=== PATIENT | female | born 1955 | race Two or more races ===

== ENCOUNTER 2022-03-24 22:19 | Inpatient (IN) | payer MEDICARE, OTHER ==
[~2022-03-24] VITALS: Ht 157.5 cm; Wt 83.0 kg
--- NOTE | 2022-03-24 22:20 | NUR ---
TO ER BED 1. BIBDAUGHTER C/O GENERALIZED WEAKNESS SINCE 10AM. DAUGHTER STATES "SHE IS NOT MAKING SENSE WHEN I TALK TO HER". NO FACIAL DROOP OR EXTREMITY WEAKNESS NOTED. DENIES ANY CHEST PAIN OR SOB. CONNECTED TO MONITOR. AWAITING MD SALAS
[2022-03-24] MEDS ORDERED: MECLIZINE HCL 12.5 MG TABLET PO ONE (22:30)
--- NOTE | 2022-03-24 22:40 | NUR ---
IV LINE ESTABLISHED, RHAND 20G. BLOOD COLLECTED AND SENT TO LAB
--- NOTE | 2022-03-24 22:47 | NUR ---
COVID ANTIGEN SWAB COLLECTED AND SENT TO LAB
[2022-03-24] MEDS ORDERED: MECLIZINE HCL 25 MG TABLET ONE (22:50)
[2022-03-24 22:53] LABS: HEMATOCRIT 37 % (33-45); HEMOGLOBIN 12.5 g/dL (11.5-14.8); LYMPHOCYTES % (AUTO) 53.7 % (20.0-44.0); MEAN CORPUSCULAR HGB CONC 34 g/dl (31.0-36.0); MEAN CORPUSCULAR VOLUME 83 fL (82-100); MONOCYTES % (AUTO) 6.8 % (2.0-12.0); NEUTROPHILS % (AUTO) 37.5 % (43.0-81.0); PLATELET COUNT (AUTO) 179 K/uL (150-450); RED BLOOD CELL COUNT(AUTO) 4.45 MIL/uL (4.0-5.2); WHITE BLOOD COUNT (AUTO) 6.5 K/uL (4.3-11.0)
[2022-03-24 22:54] LABS: BASOPHILS # (AUTO) 0.1 K/uL (0.0-0.2); LYMPHOCYTES # (AUTO) 3.5 K/uL (0.8-4.8); MONOCYTES # (AUTO) 0.4 K/uL (0.1-1.30); NEUTROPHILS # (AUTO) 2.4 K/uL (1.8-8.9)
[2022-03-24 23:12] LABS: CALCIUM, SERUM 8.9 mg/dL (8.5-10.1); CARBON DIOXIDE 27 mmol/L (21-32); CHLORIDE 102 mmol/L (98-107); CREATININE 0.6 mg/dL (0.6-1.3); GLUCOSE 210 mg/dL (74-106); POTASSIUM 5.4 mmol/L (3.5-5.1); SODIUM SERUM 136 mmol/L (136-145); UREA NITROGEN, BLOOD 17 mg/dL (7-18)
[2022-03-24 23:16] LABS: ALANINE AMINOTRANSFERASE 87 U/L (12-78); ALBUMIN 3.6 g/dL (3.4-5.0); ALKALINE PHOSPHATASE 59 U/L (46-116); BILIRUBIN,TOTAL 0.4 mg/dL (0.2-1.0); TOTAL PROTEIN, SERUM 7.2 g/dL (6.4-8.2)
--- NOTE | 2022-03-24 23:39 | NUR ---
URINE SAMPLE COLLECTED AND SENT TO LAB
[2022-03-25 00:20] LABS: ASPARTATE AMINOTRANSFERASE 94 U/L (15-37)
[2022-03-25 00:36] LABS: BILIRUBIN,URINE NEGATIVE (NEGATIVE); COLOR,URINE YELLOW (YELLOW); LEUKOCYTE ESTERASE ,URINE MODERATE (NEGATIVE); NITRITE, URINE NEGATIVE (NEGATIVE); PROTEIN,URINE NEGATIVE (NEGATIVE); UGLUCOSE NEGATIVE (NEGATIVE); UROBILINOGEN,URINE 0.2 EU/dL (0.2)
--- NOTE | 2022-03-25 03:13 | NUR ---
F/U WITH [facility] FOR CXR RESULTS.
[2022-03-25] MEDS ORDERED: SODIUM POLYSTYRENE SULFONATE 15 G/60 ML BOTTLE PO ONE (04:00)
[2022-03-25] MEDS ORDERED: SODIUM POLYSTYRENE SULFONATE 15 G/60 ML BOTTLE ONE (04:03)
[2022-03-25] MEDS ORDERED: ASPIRIN EC 325 MG TABLET.DR PO ONE (04:09)
--- NOTE | 2022-03-25 05:50 | NUR ---
TEXT DR. MARTINEZ FOR MRI APPROVAL.
[2022-03-25 06:34] LABS: BACTERIA,URINE 1+ /HPF (None Seen); RBC,URINE 0-2 /HPF (0-2)
--- NOTE | 2022-03-25 07:14 | NUR ---
LAB AT BEDSIDE
--- NOTE | 2022-03-25 07:15 | NUR ---
RECEVED PT FROM [facility] PT ASPEEPY DOUGHTGHTER AT BE SIDE
[2022-03-25] MEDS: ASPIRIN EC 325 MG TABLET.DR PO SCH (07:30)
[2022-03-25 07:38] LABS: ALBUMIN 3.8 g/dL (3.4-5.0); BILIRUBIN,DIRECT 0.1 mg/dL (0.0-0.2); BILIRUBIN,TOTAL 0.2 mg/dL (0.2-1.0); TOTAL PROTEIN, SERUM 7.1 g/dL (6.4-8.2)
[2022-03-25 07:46] LABS: THYROID STIMULATING HORMONE 2.187 uIU/mL (0.358-3.74)
--- NOTE | 2022-03-25 08:13 | NUR ---
BED 311-1
--- NOTE | 2022-03-25 08:25 | NUR ---
ACCU CHECH DONE 191 MG/LD
--- NOTE | 2022-03-25 08:36 | NUR ---
HAND OFF TO CRISTI VARGHESE TO ROOM 311-1 STABLE VS AND CONDITION
--- NOTE | 2022-03-25 09:00 | NUR ---
BACK CLOSER NOTE PATIENT RECEIVED FROM ER AROUND 0845AM. PATIENT TRANSPORTED VIA GURNEY ACCOMPANIED BY 2 NURSES. PATIENT ACCOMPANIED BY DAUGHTER EAN. PATIENT IS ALERT AND ORIENTED X 3-4 APPEARS GENERALLY WEAK. ABLE TO TRANSFER FROM THE GURNEY TO THE BED WITH MINIMAL ASSISTANCE. COMFORT MEASURES PROVIDED. WITH IV ACCESS ON THE LEFT HAND G20, PATENT AND INTACT. PER DAUGHTER, NOTED SOME SLURRING, BUT MUCH BETTER THAN 3 DAYS AGO WHEN PATIENT HAD SOME 1 SIDED WEAKNESS NOTED AND UNUSUAL TONGUE MOVEMENT WHEN EATING/ TALKING. COMFORT MEASURES PROVIDED. SAFETY MEASURES ENSURED WITH BED ON LOWEST LOCKED POSITION, SIDE RAILS RAISED AND CALL LIGHT WITHIN REACH AT ALL TIMES.
--- NOTE | 2022-03-25 09:30 | NUR ---
FINANCIAL ASSISTANCE ADVISOR NOTE TELE MONITOR PLACED AND PATIENT READING SINUS RHYTHYM ON 70'S
[2022-03-25 12:00] VITALS: BP 138/73
[2022-03-25] MEDS ORDERED: DEXTROSE 50%-WATER 50 ML DISP.SYRIN IV PRN (13:30)
[2022-03-25] MEDS ORDERED: IV NS 0.9% 1,000 ML IV PRN (14:00)
[2022-03-25] MEDS ORDERED: GLIM4TAB37 PO (14:11)
[2022-03-25] MEDS ORDERED: METF-440 PO (14:11)
[2022-03-25] MEDS ORDERED: PROP20TA19 PO (14:11)
[2022-03-25] MEDS ORDERED: INSU100I26 SQ (14:11)
[2022-03-25] MEDS ORDERED: ASPI-1420 PO (14:11)
[2022-03-25] MEDS ORDERED: PRAV40TA3 PO (14:11)
[2022-03-25] MEDS: IV NS 0.9% 1,000 ML IV PRN (14:33)
[2022-03-25] MEDS: CEFTRIAXONE 1 G in IV D5W 50 ML IV SCH (15:29)
[2022-03-25 16:00] VITALS: BP 135/79
[2022-03-25] MEDS ORDERED: BENA20TA9 PO (16:20)
[2022-03-25] MEDS ORDERED: OMEP20CA15 PO (16:20)
[2022-03-25] MEDS ORDERED: AMLO2.5T4 PO (16:20)
[2022-03-25] MEDS ORDERED: GADOTERATE MEGLUMINE 10 MMOL/20 ML VIAL IV ONE (16:37)
[2022-03-25] MEDS: INSULIN REGULAR, HUMAN 100 UNIT/ML 3 ML VIAL SQ PRN (17:29)
[2022-03-25] MEDS: BLOOD SUGAR DIAGNOSTIC 1 EACH STRIP IN SCH ×2 (17:47→21:45)
--- NOTE | 2022-03-25 18:44 | NUR ---
MANAGEMENT NURSE RN CLOSING NOTE PATIENT IS ALERT AND ORIENTED X 3, WITH SOME COGNITIVE PROBLEM PER DAUGHTER AT BEDSIDE. PATIENT APPEARS GENERALLY WEAK. ABLE TO AMBULATE TO BATHROOM WITH ASSISTANCE, VERY INSISTENT, EVEN IF PATIENT WAS TOLD NOT TO AMBULATE. WITH IV ACCESS ON THE LEFT HAND G20, WITH IVF NS RUNNING AT 75ML/HR, INFUSING WELL. PER DAUGHTER, NOTED LESS SLURRING, BUT MUCH BETTER NOW AND UNUSUAL TONGUE MOVEMENT WHEN EATING/ TALKING. COMFORT MEASURES PROVIDED. SAFETY MEASURES ENSURED WITH BED ON LOWEST LOCKED POSITION, SIDE RAILS RAISED AND CALL LIGHT WITHIN REACH AT ALL TIMES. ENDORSED TO NEXT SHIFT FOR CONTINUITY OF CARE.
--- NOTE | 2022-03-25 19:20 | NUR ---
RN NOTE PT SLEEPING SOUNDLY AT THIS TIME. RESPIRATIONS EVEN/UNLABORED. CONT ON IVF OF NS @75ML/HR. TELE MONITOR READING SR, HR 74. DAUGHTER, EAN, AT BEDSIDE. QUESTIONS ADDRESSED. AWAITING FOR MRI RESULT. NO RESULT YET AT THIS TIME. PT IN NO ACUTE DISTRESS. SAFETY MEASURES IN PLACE. WILL CONT TO MONITOR.
[2022-03-25 20:00] VITALS: BP 141/64
--- NOTE | 2022-03-25 20:50 | NUR ---
RN NOTE CHARGE NURSE RECEIVED CALL FROM RADIOLOGY/SORT SUPERVISOR RE MRI RESULT OF ACUTE TO SUBACUTE INFARCT INVOLVING THE LEFT BASAL GANGLIA. RESULT TRANSCRIPT TO FOLLOW. RELAYED TO ON-CALL ,
[2022-03-25] MEDS: ATORVASTATIN 10 MG TABLET PO SCH (21:45)
--- NOTE | 2022-03-25 21:49 | NUR ---
RN NOTE MRI RESULT SENT TO
[2022-03-26] VITALS: BP 139/74
[2022-03-26 04:00] VITALS: BP 148/68
--- NOTE | 2022-03-26 06:00 | NUR ---
RN NOTE PT'S DAUGHTER REFUSED TO HAVE BLOOD DRAWN AT THIS TIME, TOLD PHLEB TO COME BACK LATER BECAUSE PT IS SLEEPING.
[2022-03-26] MEDS: IV NS 0.9% 1,000 ML IV PRN ×2 (06:08→23:53)
[2022-03-26] MEDS: BLOOD SUGAR DIAGNOSTIC 1 EACH STRIP IN SCH ×4 (06:31→21:29)
--- NOTE | 2022-03-26 07:30 | NUR ---
SQL APPLICATION DEVELOPER OPENING NOTES PATIENT IS ASLEEP BUT EASILY ROUSED. ALERT/ORIENTED X 3, DAUGHTER AT BEDSIDE TO TRANSLATE NEEDED. . ABLE TO AMBULATE TO BATHROOM WITH IV ACCESS ON THE LEFT HAND G20, WITH IVF NS RUNNING AT 75ML/HR, INFUSING WELL. COMFORT MEASURES PROVIDED. SAFETY MEASURES ENSURED WITH BED ON LOWEST LOCKED POSITION, SIDE RAILS RAISED AND CALL LIGHT WITHIN REACH AT ALL TIMES, WILL CONT TO MONITOR Addendum: 03/26/22 at 0759 by KEVIN SOFIA RN NO S/S OF DISTRESS/SOB, ON ROOM AIR TOLERATING WELL. LOIN PULLER READING SINUS RHYTHM @ HR-85 Addendum: 03/26/22 at 1901 by KEVIN SOFIA RN R HAND IV ACCESS G20
[2022-03-26 08:00] VITALS: BP 130/70
[2022-03-26] MEDS: ASPIRIN EC 325 MG TABLET.DR PO SCH (08:46)
[2022-03-26 09:00] LABS: BASOPHILS % (AUTO) 0.6 % (0.0-2.0); EOSINOPHILS % (AUTO) 1.1 % (0.0-6.0); HEMATOCRIT 37 % (33-45); HEMOGLOBIN 12.6 g/dL (11.5-14.8); LYMPHOCYTES # (AUTO) 2.2 K/uL (0.8-4.8); LYMPHOCYTES % (AUTO) 48.3 % (20.0-44.0); MEAN CORPUSCULAR HGB CONC 34 g/dl (31.0-36.0); MEAN CORPUSCULAR VOLUME 84 fL (82-100); MONOCYTES # (AUTO) 0.3 K/uL (0.1-1.30); MONOCYTES % (AUTO) 6.7 % (2.0-12.0); NEUTROPHILS % (AUTO) 43.3 % (43.0-81.0); PLATELET COUNT (AUTO) 144 K/uL (150-450); RED BLOOD CELL COUNT(AUTO) 4.44 MIL/uL (4.0-5.2); WHITE BLOOD COUNT (AUTO) 4.6 K/uL (4.3-11.0)
[2022-03-26 09:52] LABS: CALCIUM, SERUM 8.5 mg/dL (8.5-10.1); CREATININE 0.8 mg/dL (0.6-1.3); POTASSIUM 3.9 mmol/L (3.5-5.1)
[2022-03-26 15:37] LABS: CHOLESTEROL 221 mg/dL (<200); HDL CHOLESTEROL 45 mg/dL (40-60); LDL 146 mg/dL (0-99); TRIGLYCERIDES 153 mg/dL (30-150)
[2022-03-26 16:00] VITALS: BP 166/79
[2022-03-26] MEDS: CEFTRIAXONE 1 G in IV D5W 50 ML IV SCH (16:12)
--- NOTE | 2022-03-26 18:55 | NUR ---
TEL RN CLOSING NOTES PATIENT IS ASLEEP BUT EASILY ROUSED. ALERT/ORIENTED X 3, DAUGHTER AT BEDSIDE TO TRANSLATE NEEDED NO S/S OF DISTRESS/SOB, ON ROOM AIR TOLERATING WELL. LACROSSE COACH READING SINUS RHYTHM, HR 87. ABLE TO AMBULATE TO BATHROOM WITH ASSISTANCE. IV ACCESS ON THE R HAND G20, WITH IVF NS RUNNING AT 75ML/HR, AND R- AC G20 INFUSING WELL. COMFORT MEASURES PROVIDED. SAFETY MEASURES ENSURED WITH BED ON LOWEST LOCKED POSITION, SIDE RAILS RAISED AND CALL LIGHT WITHIN REACH AT ALL TIMES, WILL CONT TO MONITOR Addendum: 03/26/22 at 1901 by KEVIN SOFIA RN WILL ENDORSE TO NEXT SHIFT
--- NOTE | 2022-03-26 19:30 | NUR ---
WARPER FIXER OPENING NOTES RECEIVED PT AWAKE IN BED. DAUGHTER AT BEDSIDE. A/O X 3 AND ABLE TO MAKE NEEDS KNOWN. PT STABLE ON ROOM AIR. NO SOB OR S/S OF RESPIRATORY DISTRESS. EXTERNAL INSURANCE SALES SUPERVISOR READING SINUS RHYTHM, HR 87. IV ACCESS ON THE R HAND G20, WITH IVF NS RUNNING AT 75ML/HR, AND RAC G20 INTACT AND PATENT. SAFETY PRECAUTIONS IN PLACE. BED IN LOWEST LOCKED POSITION, HOB ELEVATED, SIDE RAILS RAISED, AND CALL LIGHT AND TABLE WITHIN REACH. ALL NEEDS MET AT THIS TIME.
[2022-03-26 20:00] VITALS: BP 140/87
[2022-03-26] MEDS ORDERED: IOHEXOL-350 100 ML VIAL IV ONE (20:25)
[2022-03-26] MEDS ORDERED: CT SWABBABLE VALVE TRANS SET 1 EA INFUS.SET MC ONE (20:26)
[2022-03-26] MEDS ORDERED: IV NS 0.9% 250 ML IV ONE (20:26)
--- NOTE | 2022-03-26 20:28 | NUR ---
RN NOTE PT TAKEN FOR CT VIA WHEELCHAIR WITH DAUGHTER.
[2022-03-26] MEDS: ATORVASTATIN 10 MG TABLET PO SCH (21:12)
[2022-03-26] MEDS: PROPRANOLOL HCL 10 MG TABLET PO SCH (21:13)
[2022-03-26] MEDS: INSULIN REGULAR, HUMAN 100 UNIT/ML 3 ML VIAL SQ PRN (21:30)
[2022-03-27] VITALS: BP 123/74
[2022-03-27 04:00] VITALS: BP 143/65
[2022-03-27] MEDS: BLOOD SUGAR DIAGNOSTIC 1 EACH STRIP IN SCH ×2 (06:30→11:48)
[2022-03-27 06:34] LABS: BASOPHILS % (AUTO) 0.3 % (0.0-2.0); EOSINOPHILS % (AUTO) 1.3 % (0.0-6.0); HEMATOCRIT 37 % (33-45); HEMOGLOBIN 12.8 g/dL (11.5-14.8); LYMPHOCYTES % (AUTO) 52.8 % (20.0-44.0); MEAN CORPUSCULAR HGB CONC 34 g/dl (31.0-36.0); MEAN CORPUSCULAR VOLUME 83 fL (82-100); MONOCYTES # (AUTO) 0.4 K/uL (0.1-1.30); MONOCYTES % (AUTO) 7.4 % (2.0-12.0); NEUTROPHILS # (AUTO) 2.1 K/uL (1.8-8.9); NEUTROPHILS % (AUTO) 38.2 % (43.0-81.0); PLATELET COUNT (AUTO) 159 K/uL (150-450); WHITE BLOOD COUNT (AUTO) 5.6 K/uL (4.3-11.0)
[2022-03-27] MEDS: INSULIN REGULAR, HUMAN 100 UNIT/ML 3 ML VIAL SQ PRN ×2 (06:41→11:42)
--- NOTE | 2022-03-27 06:44 | NUR ---
ZYGLO TECHNICIAN CLOSING NOTES PT IN BED, EYES CLOSED, EASILY AROUSABLE. DAUGHTER AT BEDSIDE. A/O X 3 AND ABLE TO MAKE NEEDS KNOWN. PT STABLE ON ROOM AIR. NO SOB OR S/S OF RESPIRATORY DISTRESS. EXTERNAL IMAGING ADMINISTRATOR READING SINUS RHYTHM, HR 67. IV ACCESS ON THE R HAND G20, WITH IVF NS RUNNING AT 75ML/HR. ALL DUE MEDS GIVEN ORDERED. SAFETY PRECAUTIONS IN PLACE AT ALL TIMES. BED IN LOWEST LOCKED POSITION, HOB ELEVATED, SIDE RAILS RAISED, AND CALL LIGHT AND TABLE WITHIN REACH. ALL NEEDS MET AT THIS TIME AND WILL ENDORSE TO ONCOMING NURSE FOR MELISSA.
[2022-03-27 06:49] LABS: CALCIUM, SERUM 8.6 mg/dL (8.5-10.1); CREATININE 0.7 mg/dL (0.6-1.3); PHOSPHORUS 4.5 mg/dL (2.5-4.9); POTASSIUM 3.7 mmol/L (3.5-5.1)
[2022-03-27] MEDS ORDERED: PANTOPRAZOLE 40 MG TABLET.DR PO SCH (07:30)
--- NOTE | 2022-03-27 07:50 | NUR ---
LEAD PYTHON DEVELOPER OPENING NOTES RECEIVED PT AWAKE IN BED. DAUGHTER AT BEDSIDE. A/O X 3 AND ABLE TO MAKE NEEDS KNOWN. PT STABLE ON ROOM AIR. NO SOB OR S/S OF RESPIRATORY DISTRESS. EXTERNAL LEAD INVESTIGATOR READING SINUS RHYTHM, HR 71. NO COMPLAINS OF PAIN AT THIS TIME. IV ACCESS ON THE R HAND G20, WITH IVF NS RUNNING AT 75ML/HR, AND RAC G20 INTACT AND PATENT. SAFETY PRECAUTIONS IN PLACE. BED IN LOWEST LOCKED POSITION, HOB ELEVATED, SIDE RAILS RAISED, AND CALL LIGHT AND TABLE WITHIN REACH. WILL CONTINUE TO MONITOR PATIENT.
[2022-03-27] MEDS: PROPRANOLOL HCL 10 MG TABLET PO SCH (08:13)
[2022-03-27 08:45] VITALS: BP 137/71
[2022-03-27] MEDS ORDERED: AMLODIPINE BESYLATE 2.5 MG TABLET PO SCH (09:00)
[2022-03-27] MEDS ORDERED: LISINOPRIL (20MG) 20 MG TABLET PO SCH (09:00)
[2022-03-27] MEDS ORDERED: ASPIRIN EC 81 MG TABLET.DR PO SCH ×2 (09:00)
[2022-03-27] MEDS ORDERED: PRAV40TA3 PO (10:46)
[2022-03-27] MEDS ORDERED: ASPI-1420 PO (10:46)
[2022-03-27] MEDS ORDERED: CEPH500C2 PO (10:46)
[2022-03-27 12:06] VITALS: BP 149/71
--- NOTE | 2022-03-27 13:15 | NUR ---
SENIOR GEOTECHNICAL ENGINEERANIMAL SKINNER NOTES PATIENT DISCHARGED HOME IN MEDICALLY STABLE CONDITION. PATIENT A/O X4 ABLE TO MAKE NEEDS KNOWN. ALL DISCHARGE PAPERWORK READY AND PHYSICIAN DISCHARGE INSTRUCTIONS PROVIDED TO PATIENT; PATIENT AND DAUGHTER WHO IS AT THE BEDSIDE VERBALIZED UNDERSTANDING. BELONGINGS ACCOUNTED FOR AND FORM SIGNED WELL. IV ACCESS REMOVED. PATIENT DECIDED TO LEAVE THE UNIT AMBULATORY ACCOMPANIED BY DAUGHTER AND RN. PATIENT LEFT THE HOSPITAL IN A PRIVATE CAR.
== END 2022-03-27 13:15 | disposition home health service (06) | DRG 64 ==
LOC: ER 22:33 → TRANSITION 03-25 05:47 → TELE 03-25 08:41
PROVIDERS: ADMIT Nurse Practitioner Acute Care; ATTEND Nurse Practitioner Acute Care
DX: I63.9 Cerebral infarction, unspecified (principal); G93.41 Metabolic encephalopathy; N39.0 Urinary tract infection, site not specified; E87.5 Hyperkalemia; I10 Essential (primary) hypertension; Z20.822 Contact with and (suspected) exposure to COVID-19; E78.5 Hyperlipidemia, unspecified; B96.89 Other specified bacterial agents as the cause of diseases classified elsewhere; E11.65 Type 2 diabetes mellitus with hyperglycemia
CPT/HCPCS: 36415; 70450-TC; 70496-TC; 70498-TC; 70553-TC; 71045-TC; 80048-TC; 80061-TC; 80076-TC; 81001; 82962-TC; 83735-TC; 84100-TC; 84443-TC; 84484-TC; 85025-TC; 85652-TC; 85730-TC; 87081-TC; 87086-TC; 92507-TC; 92521; 93307-TC; 94799-TC; 97116-TC; 97530-TC; A9575; C9803; G0378; J0696; J1815; J7030; J7050; J7060; J8597; Q9967

== ENCOUNTER 2024-01-01 13:51 | Emergency (ER) | payer MEDICARE, OTHER ==
[~2024-01-01] VITALS: Ht 154.9 cm; Wt 73.9 kg
[~2024-01-01 13:51] MED LIST: AMLO2.5T4 PO; ASPI-1420 PO; BENA20TA9 PO; CEPH500C2 PO; GLIM4TAB37 PO; INSU100I26 SQ; METF-440 PO; OMEP20CA15 PO; PRAV40TA3 PO
[2024-01-01 14:57] LABS: BASOPHILS % (AUTO) 0.3 % (0.0-2.0); EOSINOPHILS # (AUTO) 0.1 K/uL (0.0-0.7); EOSINOPHILS % (AUTO) 1.1 % (0.0-6.0); HEMATOCRIT 40 % (33-45); HEMOGLOBIN 13.4 g/dL (11.5-14.8); LYMPHOCYTES # (AUTO) 2.3 K/uL (0.8-4.8); LYMPHOCYTES % (AUTO) 42.4 % (20.0-44.0); MEAN CORPUSCULAR HEMOGLOBIN 28 PG (26.0-33.0); MEAN CORPUSCULAR HGB CONC 33 g/dl (31.0-36.0); MEAN CORPUSCULAR VOLUME 85 fL (82-100); MONOCYTES # (AUTO) 0.3 K/uL (0.1-1.30); NEUTROPHILS # (AUTO) 2.7 K/uL (1.8-8.9); NEUTROPHILS % (AUTO) 50.2 % (43.0-81.0); PLATELET COUNT (AUTO) 178 K/uL (150-450); RED BLOOD CELL COUNT(AUTO) 4.73 MIL/uL (4.0-5.2); RED CELL DISTRIBUTION WIDTH 13.4 % (11.5-15.0); WHITE BLOOD COUNT (AUTO) 5.4 K/uL (4.3-11.0)
[2024-01-01 15:08] LABS: CALCIUM, SERUM 9.3 mg/dL (8.5-10.1); CARBON DIOXIDE 23 mmol/L (21-32); CHLORIDE 103 mmol/L (98-107); CREATININE 0.5 mg/dL (0.6-1.3); GLUCOSE 144 mg/dL (74-106); SODIUM SERUM 138 mmol/L (136-145); UREA NITROGEN, BLOOD 15 mg/dL (7-18)
[2024-01-01 15:23] LABS: INR 1.03 (0.91-1.10); PARTIAL THROMBOPLASTIN TIME 26.2 SEC (24.3-34.3); PROTHROMBIN TIME 10.9 SECS (9.2-11.1)
[2024-01-01] MEDS ORDERED: MECLIZINE HCL 25 MG TABLET ONE (16:53)
[2024-01-01] MEDS: MECLIZINE HCL 25 MG TABLET PO ONE (16:58)
[2024-01-01 17:01] VITALS: BP 141/80; TEMP 98.2; O2SAT 98
== END 2024-01-01 17:02 | disposition left against medical advice (07) ==
LOC: ER 13:56
DX: R42 Dizziness and giddiness (principal); R20.0 Anesthesia of skin; I10 Essential (primary) hypertension; E11.9 Type 2 diabetes mellitus without complications; Z90.710 Acquired absence of both cervix and uterus; Z79.4 Long term (current) use of insulin; Z79.899 Other long term (current) drug therapy
CPT/HCPCS: 99284; 70450; 93005; 85025; 80048; 36415; 84484; 85730; 82962; J8597